=== PATIENT | female | born 1945 | race Two or more races ===

== ENCOUNTER 2017-11-13 05:45 | Day surgery (SDC) | payer OTHER ==
[~2017-11-13 05:45] MED LIST: COZAAR25 MG PO; SYNTHROID175 MCG PO
[2017-11-13] MEDS ORDERED: ZITHROMAX500 MG PO (09:40)
== END 2017-11-13 13:45 | disposition home or self-care (01) ==
LOC: CIR.AMB 05:45
DX: N84.1 Polyp of cervix uteri (principal); N85.8 Other specified noninflammatory disorders of uterus

== ENCOUNTER 2022-01-15 14:46 | Outpatient (CLI) | payer OTHER ==
[~2022-01-15 14:46] MED LIST changes: +ZITHROMAX500 MG PO
== END 2022-01-15 14:58 | disposition home or self-care (01) ==
LOC: MAMO-SONO 14:46
PROVIDERS: ATTEND Obstetrics & Gynecology
DX: N60.11 Diffuse cystic mastopathy of right breast (principal); N60.12 Diffuse cystic mastopathy of left breast; Z12.31 Encounter for screening mammogram for malignant neoplasm of breast

== ENCOUNTER 2023-07-01 06:05 | Day surgery (SDC) | payer OTHER ==
[2023-06-24 13:46] LABS: URINE APPEARANCE Clear; URINE BILIRRUBIN Negative (NEGATIVE); URINE BLOOD Negative; URINE COLOR Yellow; URINE GLUCOSE Negative (NEGATIVE); URINE LEUKOCYTE Small; URINE NITRATE Negative; URINE PROTEIN Negative (NEGATIVE); URINE UROBILINOGEN 0.2 E.U./dl
[2023-06-24 13:50] LABS: URINE RBC 2.5 uL (0.0-20.8); URINE WBC 24.7 uL (0.0-23.2)
[2023-06-24 13:58] LABS: HEMATOCRIT 43.6 % (36.0-45.00); HEMOGLOBIN 14.6 g/dL (12.0-15.00); MEAN CELL VOLUME 88.2 fL (80.00-100.00); MEAN CORPUSCULAR HEMOGLOBIN 29.6 pg (27.00-32.0); MEAN CORPUSCULAR HGB CONC 33.5 g/dl (32.0-36.0); PLATELET COUNT 247 K/uL (150-450); RED BLOOD COUNT 4.94 M/uL (4.00-6.00); RED CELL DISTRIBUTION WIDTH 14.7 % (11.5-14.5)
[2023-06-24 14:15] LABS: INR 0.98; PARTIAL THROMBOPLASTIN TIME 28.8 SECONDS (22.0-34.0); PROTHROMBIN TIME 10.3 SECONDS (9.0-11.5)
[2023-06-24 14:20] LABS: ALBUMIN 4.2 gm/dL (3.4-5.0); BILIRUBIN TOTAL 0.53 mg/dL (0.3-1.2); CALCIUM 10.3 mg/dL (8.5-10.1); CREATININE SERUM 0.96 mg/dL (0.55-1.02); GFR 56.36; GLOBULINA 3.8 G/DL (2.4-3.5); POTASSIUM 5.32 mEq/L (3.5-5.1)
[~2023-07-01] VITALS: Ht 162.6 cm; Wt 76.7 kg
[2023-07-01] MEDS ORDERED: POVIDONE-IODINE 118 ML BOTT TOP ONE (10:52)
[2023-07-01] MEDS ORDERED: POVIDONE-IODINE 118 ML BOTT TOP SCH (11:45)
[2023-07-01] MEDS ORDERED: PROMETHAZINE HCL 50 MG/ML AMPUL IM PRN (12:30)
[2023-07-01] MEDS ORDERED: MORPHINE SULFATE 4 MG/ML VIAL IV PRN (12:30)
== END 2023-07-01 17:15 | disposition home or self-care (01) ==
LOC: CIR.AMB 06:05
PROVIDERS: ATTEND Obstetrics & Gynecology
DX: N85.02 Endometrial intraepithelial neoplasia [EIN] (principal)

== ENCOUNTER 2023-10-08 09:44 | Outpatient (CLI) | payer OTHER | END 2023-10-08 09:47 | disposition home or self-care (01) | LOC: RAD 09:44 | PROVIDERS: ATTEND Internal Medicine Pulmonary Disease | DX: J45.31 Mild persistent asthma with (acute) exacerbation (principal); G47.33 Obstructive sleep apnea (adult) (pediatric) ==

== ENCOUNTER 2024-07-09 12:38 | Outpatient (CLI) | payer OTHER | END 2024-07-09 12:43 | disposition home or self-care (01) | LOC: RAD 12:38 | PROVIDERS: ATTEND Internal Medicine | DX: J20.9 Acute bronchitis, unspecified (principal) ==